=== PATIENT | male | born 2000 | race Caucasian/White ===

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

== ENCOUNTER → 2021-01-08 20:40 | Outpatient (CLI) | payer BC, SELFPAY | PROVIDERS: Visit Provider Nurse Practitioner Family | DX: Z20.822 Contact with and (suspected) exposure to COVID-19 (principal) | CPT/HCPCS: C9803; U0003; U0005 ==

== ENCOUNTER 2021-09-30 09:42 | Emergency (ER) | payer BC, SELFPAY ==
--- NOTE | 2021-09-30 10:07 | HMH.EDUTC ---
[facility] [place] Clinical Impression: COVID-19 Disposition: Home, Self-Care Condition on Discharge: Good Instructions: DI for COVID-19 (Suspected or Confirmed ), Preventing the Spread of Coronavirus Discharge Instructions Additional Instructions: Drink plenty of fluids. Take tylenol or ibuprofen for pain or fever. Take the medications as directed. Follow up with your regular doctor. GO TO THE ER FOR ANY WORSENING SYMPTOMS Quarantine until you know the results of your covid-19 test. Notify your school or workplace of your results and follow their instructions regarding return to work/school. The cough medication (promethazine dm) will make you drowsy, so don't drive or operate heavy machinery after taking it. Prescriptions: Promethazine/Dextromethorphan [Promethazine-Dm Syrup] 5 ml PO Q6HP PRN #240 ml PRN Reason: Cough Transmission Status: Received by [facility] Ibuprofen [Ibuprofen 800mg Tablet] 800 mg PO Q8HP PRN #30 tab PRN Reason: Moderate Pain Transmission Status: Received by [facility] Ondansetron [Zofran 4mg ODT] 4 mg PO Q8HP PRN #12 tab PRN Reason: Nausea Transmission Status: Received by [facility] Referrals: Derick Baig MD [Primary Care Provider] - Time of Disposition: 10:45 Medical Decision Making - Medical Records Medical records reviewed: No: I reviewed the patient's medical records. - Justino Inquiry Pt receiving controlled substance: No Vital Signs: 09/30/21 10:08 09/30/21 10:46 Temperature 103.7 F H 100.9 F H Temperature Source Oral Oral Pulse Rate 103 H Pulse Rate [Left] 103 H Respiratory Rate 16 16 Blood Pressure 136/76 Blood Pressure [Right Arm] 136/76 Blood Pressure Mean [Right Arm] 96 02 Sat by Pulse Oximetry 98 - Lab Data Lab results reviewed: Yes: I reviewed the patient's lab results. Orders (Tests/Meds): ED MEDICATIONS Discontinued Medications Generic Name Dose Route Start Last Admin Trade Name Freq PRN Reason Stop Dose Admin Acetaminophen 650 mg 09/30/21 10:11 09/30/21 10:21 Acetaminophen 325mg Tab PO 09/30/21 10:12 650 mg ONCE ONE Administration Ibuprofen 600 mg 09/30/21 10:11 09/30/21 10:22 Ibuprofen 600 Mg Tablet PO 09/30/21 10:12 600 mg ONCE ONE Administration [facility] [place] - General Stated complaint: covid pos, fever, bodyaches Time Seen by Provider: 09/30/21 10:07 - History of Present Illness Provider Complaint: He states that he started to feel bad yesterday. Through the night he got worse. He is having headache, body aches, fever up to 103, cough and sore throat. - Related Data Previous Rx's Medication Instructions Recorded Ibuprofen [Ibuprofen 800mg 800 mg PO Q8HP PRN #30 tab 09/30/21 Tablet] Ondansetron [Zofran 4mg ODT] 4 mg PO Q8HP PRN #12 tab 09/30/21 Promethazine/Dextromethorphan 5 ml PO Q6HP PRN #240 ml 09/30/21 [Promethazine-Dm Syrup] Allergies Allergy/AdvReac Type Severity Reaction Status Date / Time No Known Allergies Allergy Verified 09/30/21 10:10 [facility] History - Hepatitis A Screen Attestation statement:: This patient has been screened for Hepatitis A risk factors. I have reviewed the patient's past medical history: Yes Medical History: Denies:: Diabetes Mellitus Type 1, Diabetes Mellitus Type 2 Comment: none Other Surgeries: Yes: No Previous Surgery - Social History Smoking Status: Current every day smoker Alcohol Intake: never Substance Use Type: marijuana Occupational Status: employed Family Hx:: Hypertension, Stroke, Heart Attack, Coronary Artery Disease, Diabetes, Hyperlipidemia ROS Obtained: Yes All systems reviewed & no additional complaints - Constitutional Constitutional: Reports as per HPI - Eyes Eyes: Denies eye discharge - ENT Ears, Nose, Mouth, and Throat: Reports as per HPI - Cardiovascular Cardiovascular: Denies chest pain - Respiratory Respiratory: Reports coug
[2021-09-30 10:08] VITALS: BP 136/76; PULSE 103; RESP 16; TEMP 39.8; O2SAT 98; BMI 20.7
[2021-09-30 10:46] VITALS: BP 136/76; PULSE 103; RESP 16; TEMP 38.3
== END 2021-09-30 11:01 | disposition home or self-care (01) ==
PROVIDERS: Emergency Provider Nurse Practitioner Family; PCP Family Medicine
DX: U07.1 COVID-19 (principal); R50.9 Fever, unspecified; R52 Pain, unspecified
CPT/HCPCS: 99212; C9803; G0463; U0003; U0005